=== PATIENT | female | born 1980 | race African-American/Black ===

== ENCOUNTER → 2016-12-15 | Outpatient (CLI) | payer OTHER ==
--- NOTE | 2016-12-15 15:58 | RAD ---
DATE: 12/15/2016 EXAM: DIGITAL SCREEN BILAT W/CAD HISTORY: Screening COMPARISON: None. This is a baseline exam This study was interpreted with the benefit of Computerized Aided Detection (CAD). FINDINGS: The breast parenchyma is primarily fatty replaced. Breast parenchyma level density A.. No dominant mass or suspect calcifications are seen in the breast IMPRESSION: Benign finding BI-RADS CATEGORY: 2 BENIGN FINDING(S) RECOMMENDED FOLLOW-UP: 12M 12 MONTH FOLLOW-UP PQRS compliance statement: Patient information was entered into a reminder system with a target due date 12/15/2017 for the next mammogram. Mammography is a sensitive method for finding small breast cancers, but it does not detect them all and is not a substitute for careful clinical examination. A negative mammogram does not negate a clinically suspicious finding and should not result in delay in biopsying a clinically suspicious abnormality. "Our facility is accredited by the [employer] Mammography Program."
--- NOTE | 2016-12-15 16:31 | RAD ---
Indication multinodular goiter. Grayscale images were obtained. The examination was targeted to the thyroid. No prior imaging of the thyroid is available. The right lobe of the thyroid measures 5.3 x 2.7 x 3 cm. There is a very heterogeneous appearance to the right lobe. There is a dominant nodule superiorly in the right lobe measuring approximately 2 cm in greatest dimension. An additional dominant nodule is seen caudally in the right lobe measuring approximately 2.3 cm. The isthmus appears relatively normal. The left lobe of the thyroid measures 4.9 x 2.4 x 3.1 cm. There is a dominant slightly hypoechoic nodule in the caudal aspect of the left lobe there is measuring approximately 2.4 cm in greatest dimension and an additional nodule is seen slightly caudal to the dominant nodule measuring approximately 1 cm. IMPRESSION: Multiple nodules in both lobes of the thyroid most compatible with multinodular goiter
== END | disposition home or self-care (01) ==
LOC: MAMMO 08:00
PROVIDERS: ATTEND Internal Medicine
DX: Z12.31 Encounter for screening mammogram for malignant neoplasm of breast (principal); Z00.00 Encounter for general adult medical examination without abnormal findings; E04.9 Nontoxic goiter, unspecified
CPT/HCPCS: 76536; G0202; 77067